=== PATIENT | male | born 1980 | race Caucasian/White ===

== ENCOUNTER 2017-06-30 05:29 | Emergency (ER) | payer OTHER ==
[~2017-06-30] VITALS: Ht 170.2 cm; Wt 79.8 kg
[~2017-06-30 05:29] MED LIST: ALBUTEROL SULF8.5 GM IH; AMOXICILLIN875 MG PO; BACLOFEN10 MG PO; BENTYL20 MG PO; CARAFATE100 MG/ML PO; CREATINE 50005000 MG PO; CYCLOBENZAPRINE5 MG PO; ESOMEPRAZOLE ST40 MG PO; FLOVENT 11120 INHALA IH; GABAPENTIN300 MG PO; HYDROCODON-ACE1 EAC8; LYRICA100 MG PO; LYRICA75 MG PO; MEDROL DOSEPAK4 MG PO; MONTELUKAST SOD10 MG PO; MORPHINE SULFAT15 M1; MORPHINE SULFAT15 M1 PO; MORPHINE SULFAT30 M2 PO; NICOTINE PATCH1 EAC2 TD; NO MEDS; NOHOMEMEDS; NORCO 5/3251 TABLET PO; OMEPRAZOLE20 M2 PO; OMEPRAZOLE40 M1 PO; OXYCODONE HCL10 MG PO; OXYCODONE HCL5 MG PO; PEN-VEE K,VEET500 MG; PERCOCET 5/31 TABLET PO; PREDNISONE20 MG PO; PREDNISONE50 MG PO; PRILOSEC10 MG PO; SINGULAIR10 MG PO; SYMBICORT60 INHALA1 IH; TRAMADOL HCL50 MG; VALIUM5 MG PO; VYVANSE30 MG PO; Vancocin Oral Solution PO; ZANAFLEX2 MG PO
[2017-06-30 07:27] LABS: HEMATOCRIT 36.9 % (38.0-50.0); HEMOGLOBIN 12.8 G/DL (12.5-16.6); MCH 30.1 PG (29.0-34.0); MCHC 34.7 G/DL (30.0-36.0); MCV 86.8 FL (86-99); PLATELET COUNT 132 K/uL (156-360); RBC DIS.WIDTH-CV 12.5 % (11.8-14.6); RBC DIS.WIDTH-SD 39.8 % (39-53); RED BLOOD COUNT 4.25 M/uL (4.00-5.50); WHITE BLOOD COUNT 8.7 K/uL (4.1-10.2)
[2017-06-30 07:37] LABS: CHLORIDE 103 mEq/L (99-109)
[2017-06-30 07:38] LABS: POTASSIUM 4.4 mEq/L (3.7-5.4); SODIUM 137 mEq/L (136-147)
[2017-06-30 07:39] LABS: GLUCOSE 113 mg/dL (70-99)
[2017-06-30 07:43] LABS: CREATININE 0.7 mg/dL (0.6-1.3); GFR ESTIMATE (CALCULATED) > 59 mL/min/ (58.99-99999)
[2017-06-30 07:44] LABS: UREA NITROGEN (BUN) 10 mg/dL (9-23)
[2017-06-30] MEDS ORDERED: METHADONE HCL40 MG PO (08:46)
[2017-06-30] MEDS ORDERED: VENTOLIN HFA18 GM IH (08:46)
[2017-06-30] MEDS ORDERED: TAMIFLU75 MG PO (08:47)
[2017-06-30 09:07] VITALS: BP 100/61
== END 2017-06-30 09:10 | disposition home or self-care (01) ==
LOC: EME 05:29
DX: B34.9 Viral infection, unspecified (principal); R59.0 Localized enlarged lymph nodes; K21.9 Gastro-esophageal reflux disease without esophagitis; J45.909 Unspecified asthma, uncomplicated; F31.9 Bipolar disorder, unspecified; G89.29 Other chronic pain; F17.200 Nicotine dependence, unspecified, uncomplicated; Z91.040 Latex allergy status
CPT/HCPCS: 80048; 85027; 99281; 99285

== ENCOUNTER 2017-09-30 11:37 | Emergency (ER) | payer OTHER ==
[~2017-09-30] VITALS: Ht 170.2 cm; Wt 80.1 kg
[~2017-09-30 11:37] MED LIST changes: +METHADONE HCL40 MG PO; +TAMIFLU75 MG PO; +VENTOLIN HFA18 GM IH
[2017-09-30 11:44] VITALS: BP 125/79
[2017-09-30] MEDS ORDERED: ERYTHROMYC1 APPLICAT LEFT EYE (13:33)
[2017-09-30] MEDS ORDERED: NAPROSYN500 MG PO (13:33)
== END 2017-09-30 13:48 | disposition home or self-care (01) ==
LOC: EME 11:37
DX: S05.02XA Injury of conjunctiva and corneal abrasion without foreign body, left eye, initial encounter (principal); W22.8XXA Striking against or struck by other objects, initial encounter; Z91.040 Latex allergy status; F17.200 Nicotine dependence, unspecified, uncomplicated
CPT/HCPCS: 99281; 99285

== ENCOUNTER 2017-11-22 15:45 | Emergency (ER) | payer OTHER ==
[~2017-11-22] VITALS: Ht 167.6 cm; Wt 81.2 kg
[~2017-11-22 15:45] MED LIST changes: +ERYTHROMYC1 APPLICAT LEFT EYE; +NAPROSYN500 MG PO
[2017-11-22 16:48] LABS: APPEARANCE CLEAR ((CLEAR)); BILIRUBIN NEGATIVE; BLOOD NEGATIVE; COLOR YELLOW ((YELLOW)); GLUCOSE (STRIP) NEGATIVE; KETONES NEGATIVE; LEUKOCYTES NEGATIVE; NITRITE NEGATIVE; PROTEIN (STRIP) NEGATIVE; SPECIFIC GRAVITY 1.026 (1.000-1.030); UCUL ADDED? NO
[2017-11-22] MEDS ORDERED: TORADOL10 MG PO (17:19)
[2017-11-22 17:30] VITALS: BP 106/85
== END 2017-11-22 17:30 | disposition home or self-care (01) ==
LOC: EME 15:45
PROVIDERS: Physician Assistant
DX: M54.42 Lumbago with sciatica, left side (principal); G89.29 Other chronic pain; R35.0 Frequency of micturition; Z79.891 Long term (current) use of opiate analgesic; F17.200 Nicotine dependence, unspecified, uncomplicated
CPT/HCPCS: 81003; 99281; 99283; J1100